=== PATIENT | female | born 1960 | race Caucasian/White ===

== ENCOUNTER 2020-09-07 12:29 | Emergency (ER) | payer MEDICARE, MEDICAID, SELFPAY ==
[2020-09-07 12:36] VITALS: PULSE 73; RESP 16; TEMP 36.6; O2SAT 97; BMI 39.5
--- NOTE | 2020-09-07 12:36 | PC.NURSE ---
PT REFUSED AUTOMATED BP TO BE TAKEN DURING TRIAGE TAKE THAT OFF, I'M NOT DOING THAT, IT HURTS TOO MUCH , INSISTING ON MANUAL BP CUFF TO BE USED WHICH WAS UNAVAILABLE IN THE TRIAGE ROOM AT THAT TIME.
--- NOTE | 2020-09-07 14:10 | PC.NURSE ---
patient a&ox3, pt upset and stated you know, I was the only person in the waiting room when I was brought in and now I am just sitting here waiting , this nurse assured the patient that despite the waiting room being empty that the emergency department was currently full and that there was a provider (dr. daily) who had signed up for her and had been called into an urgent situation and would be with her as soon as she could. Dr. Daily was notified of the patients comment.
--- NOTE | 2020-09-07 14:30 | PC.NURSE ---
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
--- NOTE | 2020-09-07 14:40 | PC.NURSE ---
female kory ruiz- went in to take the patients vitals, patient only allowed manual BP to be taken, requested it to be done on both arms and stated after her vitals were obtained that she needs the nurse to obtain her vitals and to not chart what was obtained. The patient also stated that her nose was bleeding again- Dr. Garcia was notified. This nurse will obtain vitals momentarily.
[2020-09-07] MEDS: Oxymetazoline HCl 0.05 % Nasal 15 ML SPRAY 2 SPRAY NOSTRIL-B (14:47)
--- NOTE | 2020-09-07 14:53 | ED_ITS ---
History of Present Illness General Chief Complaint: Epistaxis Stated Complaint: nose bleed Time Seen by Provider: 09/07/20 13:59 Source: patient Mode of arrival: ambulatory Limitations: no limitations History of Present Illness HPI Narrative: Patient comes emergency room complaining of epistaxis. Patient states she is on Eliquis. Starting this morning patient started having a nosebleed from the right side. Patient states she tried putting ice on her forehead and her back, holding pressure without any success. Patient denies shortness of breath, no chest pain, no dizziness. I was informed by the patient's nurse and tech and EMS that the patient is refusing to have her blood pressure taken. Related Data Allergies Allergy/AdvReac Type Severity Reaction Status Date / Time No Known Allergies Allergy Verified 09/07/20 12:41 Review of Systems Review of Systems: Constitutional : No Weight loss, No Fever, No Chills, No Night Sweats, No Fatigue, No Malaise ENT/Mouth : No Hearing loss, No Ear Pain, No Nasal Congestion, No Sinus Pain, No Hoarseness, No sore throat, No Rhinorrhea, No Swallowing Difficulty, complaining right nostril bleeding Eyes: No Eye Pain, No Swelling, No Redness, No Foreign Body, No Discharge, No Vision Changes Cardiovascular : No Chest Pain, No SOB, No Dyspnea on Exertion, No Orthopnea, No Edema, No Palpitations Respiratory : No Cough, No Sputum, No Wheezing, No Smoke Exposure, No Dyspnea Gastrointestinal : No Nausea, No Vomiting, No Diarrhea, No Constipation, No abdominal Pain, No Hematochezia, No Melena Genitourinary : no irregular bleeding, No Dysuria, No Urinary Frequency, No Hematuria, No Urinary Incontinence, No Urgency, No Flank Pain, No Urinary Flow Changes, No Hesitancy Musculoskeletal : No joint pain, No Myalgias, No Joint Swelling Skin : No Skin Lesions, No rash Neuro : No Weakness, No Numbness, No Paresthesias, No Loss of Consciousness, No Dizziness, No Headache Psych : No Anxiety/Panic, No Depression, No SI/HI/AH/VH, No Social Issues, Heme/Lymph: No Bruising, No Bleeding,No Lymphadenopathy Endocrine : No Polyuria, No Polydipsia, No Temperature Intolerance [facility] Past Medical History Medical History Atrial fibrillation Social History Social History Alcohol intake: never Smoked in Last 30 Days: No Use of substances other than those prescribed or required for medical reasons: No Advance Directives: Yes Advance Directives Information Provided: Yes Advance Directives on File: No Physical Exam Vital Signs: Vital Signs: Last Vital Signs Temp 97.9 F 09/07/20 12:36 Pulse 73 09/07/20 12:36 Resp 16 09/07/20 12:36 BP 150/98 H 09/07/20 15:09 Pulse Ox 97 09/07/20 12:36 Body Mass Index 39.5 Appearance: Alert. Oriented X3. No acute distress. Eyes: Pupils equal, round and reactive to light. ENT: Pharynx normal. Bleeding from the right [place] Neck: Normal inspection. Neck supple. No lymph nodes noted. No crepitus CVS: Normal heart rate and rhythm. Pulses normal. Normal S1 and S2 Respiratory: No respiratory distress. Breath sounds normal. No Wheezing. No rales Abdomen: Soft and nontender. No rigidity. No distention. good BS x4 Skin: Skin warm and dry. Normal skin color. Normal skin turgor. Extremities: No lower extremity edema. No lower extremity edema. No Lacerations. No Rash Neuro: Oriented X 3. No motor deficit. No sensory deficit. Moving all extermities. No slurred speech. Course Course Course Narrative: Patient's nose was sprayed with Afrin, then packed with Afrin. The bleeding decreased however there is still small anterior bleed. Patient's nose was sprayed and packed with TXA. TXA a did slow down the bleeding, however it is still bleeding minimally. Patient states that she will not accept a rhino rocket. I discussed with the patient the next option is to use silver nitrate, patient agrees. Silver nitrates were applied to the right nostril, patient still has 1 small spo t that continues bleeding. Patient refuses any further intervention, states that his 89-year-old neighbor is waiting for her outside and does not want him driving in the dark. Patient requesting to be discharged. Patient took with her the bottle of Afrin, explained to her how to use it if the bleeding recurs. If she has significant bleeding, patient is to return to emergency room. Discharge Plan Discharge Clinical Impression: Epistaxis Patient Disposition: Home, Self-Care Instructions: Nosebleed (ED) Additional Instructions: Please follow-up with your primary care physician tomorrow. If you have any worsening or new symptoms, please return to the emergency room or call 911
--- NOTE | 2020-09-07 14:55 | PC.NURSE ---
charge nurse- aranza- is aware of the patient being difficult to staff
--- NOTE | 2020-09-07 14:59 | PC.NURSE ---
dr daily at bedside per request of the patient, will obtain vitals after dr. daily has finished
[2020-09-07 15:09] VITALS: BP 150/98
--- NOTE | 2020-09-07 15:09 | PC.NURSE ---
this nurse obtained bp and patient stated that it was still high for her, patient requested for the charge nurse
[2020-09-07] MEDS: Tranexamic Acid 1,000 MG in 0.9 % Sodium Chloride 50 ML 360 MG IV (15:50)
[2020-09-07] MEDS: Lidocaine HCl 2 % MPF 5 ML VIAL INFILTRATI (17:19)
[2020-09-07] MEDS: Silver Nitrate Applicator STICK..EA. 5 APPL TOPICAL (17:20)
--- NOTE | 2020-09-07 17:20 | PC.NURSE ---
all medications were administered by provider and discarded prior to scanning.
--- NOTE | 2020-09-07 17:35 | PC.NURSE ---
patient refusing discharge, wanting to speak with provider again. notified provider and notified charge nurse, patient states there is a serious lack of communication in this place and I am appalled. patient is concerned over her nose that may bleed again after she discharges.
== END 2020-09-07 17:34 | disposition home or self-care (01) ==
PROVIDERS: Emergency Provider Emergency Medicine
DX: R04.0 Epistaxis (principal); I48.91 Unspecified atrial fibrillation; Z79.01 Long term (current) use of anticoagulants
CPT/HCPCS: 30901; 99284

== ENCOUNTER → 2020-10-19 08:24 | Outpatient (BNVA) | payer MEDICARE, MEDICAID, SELFPAY | PROVIDERS: PCP Internal Medicine; Visit Provider Internal Medicine Gastroenterology | DX: K76.0 Fatty (change of) liver, not elsewhere classified (principal) | CPT/HCPCS: 99212 ==

== ENCOUNTER 2020-12-24 08:13 | Day surgery (SDC) | payer MEDICARE, MEDICAID, SELFPAY ==
--- NOTE | 2020-12-20 12:59 | HO.ANESPROP2 ---
HPI - Anesthesia Eval Consult details Narrative: 60yo F for Upper Endoscopy with Disaccharidase Eliquis for afib/flutter PMFSH Active Problems Active Problems: All Active Problems (Updated 12/18/20 @ 12:44 by Maira Lucas) Fatty liver (Acute) Abdominal pain (Acute) Past Medical History Medical History Arthritis Atrial fibrillation and flutter Depression GERD (gastroesophageal reflux disease) H/O hiatal hernia History of Bautista's esophagus HTN (hypertension) Hyperlipidemia Iron deficiency anemia On anticoagulant therapy HORACE treated with BiPAP Restless leg syndrome Family History Family History Mother Breast cancer Sleep apnea A-fib Maternal Aunt Breast cancer A-fib Family/Other Breast cancer Sleep apnea Maternal Uncle A-fib Surgical History Surgical History H/O colonoscopy H/O dilation and curettage H/O melanoma excision H/O removal of cyst H/O right knee surgery History of esophagogastroduodenoscopy (EGD) Social History Social History Household Members: Other Household Members Other:: yady - edilia Alcohol intake: current Alcohol intake frequency: holidays/special occasions only Patient Tobacco Use Status: Never used Tobacco Meds Allergies Allergy/AdvReac Type Severity Reaction Status Date / Time erythromycin base Allergy Unknown Unknown Verified 12/24/20 08:43 Home Medications Medication Instructions Recorded Confirmed Last Taken Type apixaban 2.5 mg tablet 2.5 mg PO ONCE tab 10/19/20 12/20/20 History diltiazem HCl 120 mg 120 mg PO DAILY 10/19/20 Unknown History capsule,extended release 24 hr ketoconazole 2 % topical cream appl TOPICAL 10/19/20 Unknown History rosuvastatin 5 mg tablet mg PO 10/19/20 Unknown History valacyclovir 1 gram tablet 2,000 mg PO BID 10/19/20 Unknown History Exam Exam Date and Time: December 20, 2020 1259 Assessment and Plan Assessment Anesthesia Assessment: Chart Reviewed
[2020-12-24 07:00] VITALS: BMI 38.9
[2020-12-24 08:20] VITALS: BP 148/84; PULSE 69; RESP 18; TEMP 36.6; O2SAT 96
--- NOTE | 2020-12-24 08:39 | HO.ANESPROP2 ---
[facility] Active Problems Active Problems: All Active Problems (Updated 12/18/20 @ 12:44 by Maira Lucas) Fatty liver (Acute) Abdominal pain (Acute) Past Medical History Medical History Arthritis Atrial fibrillation and flutter Depression GERD (gastroesophageal reflux disease) H/O hiatal hernia History of Bautista's esophagus HTN (hypertension) Hyperlipidemia Iron deficiency anemia On anticoagulant therapy HORACE treated with BiPAP Restless leg syndrome Family History Family History Mother Breast cancer Sleep apnea A-fib Maternal Aunt Breast cancer A-fib Family/Other Breast cancer Sleep apnea Maternal Uncle A-fib Surgical History Surgical History H/O colonoscopy H/O dilation and curettage H/O melanoma excision H/O removal of cyst H/O right knee surgery History of esophagogastroduodenoscopy (EGD) Social History Social History Household Members: Other Household Members Other:: yady - edilia Alcohol intake: current Alcohol intake frequency: holidays/special occasions only Patient Tobacco Use Status: Never used Tobacco Use of substances other than those prescribed or required for medical reasons: No Have you been hit, kicked, punched, or otherwise hurt by someone within the past year? If so, by whom?: No Are you DNR?: No Advance Directives: No Advance Directives Information Provided: No Recently lost weight without trying: No Nutrition Risks: No Nutritional Risk Meds Allergies Allergy/AdvReac Type Severity Reaction Status Date / Time No Known Allergies Allergy Verified 10/19/20 08:34 Active Medications: Current Medications Generic Name Dose Route Start Last Admin Trade Name Freq PRN Reason Stop Dose Admin Lactated Ringer's 1,000 mls @ 100 mls/hr 12/24/20 08:15 Lr IVCONT .Q10H [facility] Home Medications Medication Instructions Recorded Confirmed Last Taken Type apixaban 2.5 mg tablet 2.5 mg PO ONCE tab 10/19/20 12/20/20 History diltiazem HCl 120 mg 120 mg PO DAILY 10/19/20 Unknown History capsule,extended release 24 hr ketoconazole 2 % topical cream appl TOPICAL 10/19/20 Unknown History rosuvastatin 5 mg tablet mg PO 10/19/20 Unknown History valacyclovir 1 gram tablet 2,000 mg PO BID 10/19/20 Unknown History Exam Exam Date and Time: December 24, 2020 0839 Height,Weight and Vital Signs: Height 5 ft 6 in Weight 109.316 kg Last Vital Signs Temp 98 F 12/24/20 08:20 Pulse 69 12/24/20 08:20 Resp 18 12/24/20 08:20 BP 148/84 H 12/24/20 08:20 Pulse Ox 96 12/24/20 08:20 Airway Mallampati Class: III TM Dist: >3cm Neck ROM: Full Heart: RRR Lungs: CTA
--- NOTE | 2020-12-24 08:45 | PC.NURSE ---
pt sts only can ambulate short distance because of chronic knee pain with movement.
[2020-12-24] MEDS: Lactated Ringers 1,000 ML 100 ML IVCONT (08:54)
--- NOTE | 2020-12-24 09:09 | MHC.SHP ---
Pre-Procedural Eval Section B Chief Complaint: Abdominal Pain and Fatty Liver Relevant Family History (Specify if Yes): No Relevant Social History: None Present Medications: see Short Stay Collaborative assessment Medical History: Significant History (Arthritis Atrial fibrillation and flutter Depression GERD (gastroesophageal reflux disease) H/O hiatal hernia History of Bautista's esophagus HTN (hypertension) Hyperlipidemia Iron deficiency anemia On anticoagulant therapy HORACE treated with BiPAP Restless leg syndrome) History of Previous Operations: Relevant previous surgery/procedure and date(s) (H/O colonoscopy H/O dilation and curettage H/O melanoma excision H/O removal of cyst H/O right knee surgery History of esophagogastroduodenoscopy (EGD)) Allergies: Allergies Allergy/AdvReac Type Severity Reaction Status Date / Time erythromycin base Allergy Unknown Unknown Verified 12/24/20 08:43 Review of Systems Sugical H&P ROS: Negative: Constitution, Cardiovascular, Respiratory, Neurological, Psychiatric, Hem-Onc, Allergic/Immunologic, Gastrointestinal, Genitourinary, Musculoskeletal, Integumentary, Endocrine and Eyes/Ears/Nose/Throat Exam Surgical H&P Exam: Normal: HEENT, Normal: Heart, Normal: Lungs, Normal: Extremities, Normal: Abdomen, Normal: Skin and Normal: Neurological Plan Diagnosis/Plan: Unchanged I have reviewed the history and physical and performed a pertinent physical examination on my patient. No changes have occurred unless specified.
--- NOTE | 2020-12-24 09:11 | P.BOP_ITS ---
Brief Operative Note Date of Service: 12/24/20 Pre-op diagnosis: abdo pain, bloating Post-op diagnosis: same Procedure: see op note Surgeon: Claribel Meek MD Anesthesia: MAC Was an Psychologist Private Practice used for this Procedure?: No Estimated blood loss (mL): 0 Condition: stable Disposition: PACU
--- NOTE | 2020-12-24 09:11 | W.PM.OPN ---
Operative Note Operative Note Date of Service: 12/24/20 Narrative: Procedure Description: EGD FLEXIBLE TRANSORAL UPPER GASTROINTESTINAL ENDOSCOPY UPPER ENDOSCOPY Consent: Indications for the procedure and potential complications of bleeding, perforation, reaction to medications and missed diagnosis were discussed with the patient and informed consent was obtained. Instrument: Olympus GIF H 190 J mid size upper endoscope Monitoring: Vital signs and clinical assessment, continuous EKG monitoring, Pulse oximetry, Carbon Dioxide monitoring and blood pressure monitoring were done throughout the procedure. Procedure: The patient was placed in the left lateral decubitis position and pre-procedure medications were administered and a bite block was placed. The endoscope was inserted into the mouth and advanced under direct vision to the third part of duodenum. A careful inspection was made as the upper endoscope was withdrawn including a retroflexed examination of the proximal stomach; Findings and interventions are described below. Findings: Larynx:normal Esophagus: GE junction at 40 cm, diaphragm hiatus at 40 cm, irregular Z line with islands opf salmon pink tissue noted, bx taken to r/o barretts, also mild erythema Stomach: Prominent fold or polyp lesion right at pylorus with erythema on the surface prolapsing into the bulb, this was removed with combination of cold snare and biopsy. 3 clips applied for hemostasis. Grade 2 flapvalve on retroflexed examination of the cardia. A few fundic gland polyps were noted and biopsied. Random stomach biopsies also taken Duodenum: mild erythema in bulb, bx taken Intervention: Biopsies as noted above Impression/Findings: bulbar duodenitis fundic gland polyps gastric polyp vs fold at pylorus suspected barretts esophagus PLAN: await bx results, if sx persist then GES
[2020-12-24 10:03] VITALS: BP 127/68; PULSE 62; RESP 16; TEMP 36.8; O2SAT 99
[2020-12-24 10:18] VITALS: PULSE 57; RESP 18; TEMP 36.9; O2SAT 98
--- NOTE | 2020-12-24 10:52 | HO.POSTANES ---
Post Anesthesia Evaluation Post Anesthesia Evaluation Vital Signs: Vital Signs Temp Pulse Resp BP Pulse Ox 12/24/20 10:18 98.4 F 57 18 98 12/24/20 10:03 98.3 F 62 16 127/68 99 12/24/20 08:20 98 F 69 18 148/84 H 96 Anesthesia: Monitored Mental Status: Awake Pain Control: Satisfactory Nausea/Vomiting: None Hydration: Adequate Anesthesia-Related Issues: No Anes. Related Issues
[2020-12-28 17:56] LABS: Lactase 3.1 (15.0-45.5); Palatinase 9.7 (5.0-26.3)
== END 2020-12-24 11:09 | disposition home or self-care (01) ==
PROVIDERS: PCP Internal Medicine; Visit Provider Internal Medicine Gastroenterology
PROC: 0DJ08ZZ Inspection of Upper Intestinal Tract, Via Natural or Artificial Opening Endoscopic (ICD-10-PCS; CPT 43235; principal; 2020-12-24 09:30)
DX: K29.80 Duodenitis without bleeding (principal); K31.7 Polyp of stomach and duodenum; R11.2 Nausea with vomiting, unspecified; K44.9 Diaphragmatic hernia without obstruction or gangrene; K76.0 Fatty (change of) liver, not elsewhere classified; R16.2 Hepatomegaly with splenomegaly, not elsewhere classified; N28.1 Cyst of kidney, acquired; D18.00 Hemangioma unspecified site; I48.91 Unspecified atrial fibrillation; I48.92 Unspecified atrial flutter; Z79.01 Long term (current) use of anticoagulants; I10 Essential (primary) hypertension; G47.33 Obstructive sleep apnea (adult) (pediatric); Z79.899 Other long term (current) drug therapy; Z85.820 Personal history of malignant melanoma of skin
CPT/HCPCS: 43251; 43239; 36415; 82657; 88305; 88342

== ENCOUNTER → 2021-01-18 08:38 | Outpatient (BNVA) | payer MEDICARE, MEDICAID, SELFPAY | PROVIDERS: PCP Internal Medicine; Visit Provider Internal Medicine Gastroenterology | CPT/HCPCS: Q3014 ==

== ENCOUNTER → 2021-03-18 14:58 | Outpatient (BNVA) | payer MEDICARE, MEDICAID, SELFPAY | PROVIDERS: PCP Internal Medicine; Visit Provider Internal Medicine Gastroenterology | CPT/HCPCS: Q3014 ==

== ENCOUNTER 2021-06-17 12:58 | Day surgery (SDC) | payer MEDICARE, MEDICAID, SELFPAY ==
--- NOTE | 2021-06-14 09:41 | P.CONAN_ITS ---
Documented by User: Alycia Flores NP 06/14/21 09:50 HPI - Anesthesia Eval Consult details Narrative: 61yo F for Upper Endoscopy and Colonoscopy Eliquis for afib/flutter s/p EGD 12/2020 with TIVA PMFSH Active Problems Active Problems: All Active Problems (Updated 12/18/20 @ 12:44 by Maira Lucas, RN) Fatty liver (Acute) Abdominal pain (Acute) Past Medical History Medical History Arthritis Atrial fibrillation and flutter Depression GERD (gastroesophageal reflux disease) H/O hiatal hernia History of Bautista's esophagus HTN (hypertension) Hyperlipidemia Iron deficiency anemia On anticoagulant therapy HORACE treated with BiPAP Restless leg syndrome Family History Family History Mother Breast cancer Sleep apnea A-fib Maternal Aunt Breast cancer A-fib Family/Other Breast cancer Sleep apnea Maternal Uncle A-fib Surgical History Surgical History H/O colonoscopy H/O dilation and curettage H/O melanoma excision H/O removal of cyst H/O right knee surgery History of esophagogastroduodenoscopy (EGD) Hx of endoscopy Social History Social History Household Members: Other Household Members Other:: yady - edilia Alcohol intake: current Alcohol intake frequency: holidays/special occasions only Patient Tobacco Use Status: Never used Tobacco Use of substances other than those prescribed or required for medical reasons: No Are you DNR?: No Advance Directives: No Advance Directives Information Provided: Yes Meds Allergies Allergy/AdvReac Type Severity Reaction Status Date / Time erythromycin base Allergy Unknown Unknown Verified 01/18/21 08:38 Home Medications Medication Instructions Recorded Confirmed Last Taken Type apixaban 2.5 mg tablet (Eliquis) 2.5 mg PO ONCE tab 10/19/20 01/18/21 12/20/20 History diltiazem HCl 120 mg 120 mg PO DAILY 10/19/20 01/18/21 Unknown History capsule,extended release 24 hr ketoconazole 2 % topical cream appl TOPICAL 10/19/20 Unknown History rosuvastatin 5 mg tablet 5 mg PO DAILY 10/19/20 01/18/21 Unknown History valacyclovir 1 gram tablet 2,000 mg PO BID 10/19/20 01/18/21 Unknown History biotin 1,000 mcg chewable tablet 1,000 mcg PO DAILY 01/18/21 01/18/21 Unknown History flecainide 150 mg tablet 1 tab PO Q12H PRN 01/18/21 01/18/21 Unknown History sodium,potassium,mag sulfates 17.5 See Rx Instructions PO .COMPLEX ml 01/18/21 Unknown History gram-3.13 gram-1.6 gram oral soln (Suprep Bowel Prep Kit) apixaban 5 mg tablet (Eliquis) 5 mg PO BID 03/18/21 Unknown History Exam Exam Date and Time: June 14, 2021 0941 Assessment and Plan Assessment Anesthesia Assessment: Chart Reviewed Documented by User: Katelyn Beckwith MD 06/17/21 13:47 REPLACED BY [facility] Past Medical History Medical History Arthritis Atrial fibrillation and flutter Depression GERD (gastroesophageal reflux disease) H/O hiatal hernia History of Bautista's esophagus HTN (hypertension) Hyperlipidemia Iron deficiency anemia On anticoagulant therapy HORACE treated with BiPAP Restless leg syndrome Family History Family History Mother Breast cancer Sleep apnea A-fib Maternal Aunt Breast cancer A-fib Family/Other Breast cancer Sleep apnea Maternal Uncle A-fib Family history of problems with anesthesia: No Surgical History Surgical History H/O colonoscopy H/O dilation and curettage H/O melanoma excision H/O removal of cyst H/O right knee surgery History of esophagogastroduodenoscopy (EGD) Hx of endoscopy History of Problems with Anesthesia: No Social History Social History Household Members: Other Household Members Other:: yady - edilai Alcohol intake: current Alcohol intake frequency: holidays/special occasions only Patient Tobacco Use Status: Never used Tobacco Use of substances other than those prescribed or required for medical reasons: No Are you DNR?: No Advance Directives: No Advance Directives Information Provided: Yes Meds Allergies Allergy/AdvReac Type Severity Reaction Status Date / Time erythromycin base Allergy Unknown Unknown Verified 01/18/21 08:38 Home Medications Medication Instructions Recorded Confirmed Last Taken Type apixaban 2.5 mg tablet (Eliquis) 2.5 mg PO ONCE tab 10/19/20 01/18/21 12/20/20 History diltiazem HCl 120 mg 120 mg PO DAILY 10/19/20 01/18/21 Unknown History capsule,extended release 24 hr ketoconazole 2 % topical cream appl TOPICAL 10/19/20 Unknown History rosuvastatin 5 mg tablet 5 mg PO DAILY 10/19/20 01/18/21 Unknown History valacyclovir 1 gram tablet 2,000 mg PO BID 10/19/20 01/18/21 Unknown History biotin 1,000 mcg chewable tablet 1,000 mcg PO DAILY 01/18/21 01/18/21 Unknown History flecainide 150 mg tablet 1 tab PO Q12H PRN 01/18/21 01/18/21 Unknown History sodium,potassium,mag sulfates 17.5 See Rx Instructions PO .COMPLEX ml 01/18/21 Unknown History gram-3.13 gram-1.6 gram oral soln (Suprep Bowel Prep Kit) apixaban 5 mg tablet (Eliquis) 5 mg PO BID 03/18/21 Unknown History Exam Airway Mallampati Class: II TM Dist: >3cm Neck ROM: Full Heart: rrr Lungs: cta Assessment and Plan Assessment Anesthesia Assessment: Anesthesia Plan Discussed and Chart Reviewed Final Anesthetic Review Family History of Problems with Anesthesia: No History of Problems with Anesthesia: No NPO: Yes ASA Class: III Final Preanesthetic Review: No Changes in Pt Med Stat, Meds/Allgs Chart Reviewed and Consent Obtained/Reviewed Patient Risk: Intermediate Procedure Risk: Intermediate Anesthetic Plan Anesthetic Plan: MAC: Disposition: Standard PACU
[2021-06-17 13:29] VITALS: BP 151/86; PULSE 73; RESP 18; TEMP 37.1; O2SAT 98; BMI 32.8
[2021-06-17] MEDS: Lactated Ringers 1,000 ML 100 ML IVCONT (13:48)
--- NOTE | 2021-06-17 14:43 | MHC.SHP ---
Pre-Procedural Eval Section A Date of Service: 06/17/21 Section B Chief Complaint: epigastric pain Relevant Family History (Specify if Yes): No Relevant Social History: None Present Medications: see Short Stay Collaborative assessment Medical History: Significant History (Arthritis Atrial fibrillation and flutter Depression GERD (gastroesophageal reflux disease) H/O hiatal hernia History of Bautista's esophagus HTN (hypertension) Hyperlipidemia Iron deficiency anemia On anticoagulant therapy HORACE treated with BiPAP Restless leg syndrome) History of Previous Operations: Relevant previous surgery/procedure and date(s) (H/O colonoscopy H/O dilation and curettage H/O melanoma excision H/O removal of cyst H/O right knee surgery History of esophagogastroduodenoscopy (EGD) Hx of endoscopy) Allergies: Allergies Allergy/AdvReac Type Severity Reaction Status Date / Time erythromycin base Allergy Unknown Unknown Verified 01/18/21 08:38 Review of Systems Sugical H&P ROS: Negative: Constitution, Cardiovascular, Respiratory, Neurological, Psychiatric, Hem-Onc, Allergic/Immunologic, Gastrointestinal, Genitourinary, Musculoskeletal, Integumentary, Endocrine and Eyes/Ears/Nose/Throat Exam Surgical H&P Exam: Normal: HEENT, Normal: Heart, Normal: Lungs, Normal: Extremities, Normal: Abdomen, Normal: Skin and Normal: Neurological Plan Diagnosis/Plan: Unchanged I have reviewed the history and physical and performed a pertinent physical examination on my patient. No changes have occurred unless specified. EGd, colonoscopy for assessment of abdominal pain.
--- NOTE | 2021-06-17 14:52 | PM.OP ---
Brief Operative Note Date of Service: 06/17/21 Pre-op diagnosis: abdominal pain Post-op diagnosis: same Procedure: see op note Surgeon: Claribel Meek MD Anesthesia: MAC Was an Gas Operations Superintendent used for this Procedure?: No Estimated blood loss (mL): 0 Condition: stable Disposition: PACU
--- NOTE | 2021-06-17 14:53 | W.PM.OPN ---
Operative Note Operative Note Date of Service: 06/17/21 Narrative: Operative Information Procedure Description: EGD, Colonoscopy FLEXIBLE TRANSORAL UPPER GASTROINTESTINAL ENDOSCOPY AND COLONOSCOPY PROCEDURE NOTE UPPER ENDOSCOPY Consent: Indications for the procedure and potential complications of bleeding, perforation, reaction to medications and missed diagnosis were discussed with the patient and informed consent was obtained. Instrument: Olympus GIF H 190 J mid size upper endoscope Monitoring: Vital signs and clinical assessment, continuous EKG monitoring, Pulse oximetry, Carbon Dioxide monitoring and blood pressure monitoring were done throughout the procedure. Procedure: The patient was placed in the left lateral decubitis position and pre-procedure medications were administered and a bite block was placed. The endoscope was inserted into the mouth and advanced under direct vision to the third part of duodenum. A careful inspection was made as the upper endoscope was withdrawn including a retroflexed examination of the proximal stomach; Findings and interventions are described below. Findings: Larynx:normal Esophagus: GE junction at 40? cm, diaphragm hiatus at 40 cm, irregular Z line with islands of salmon pink tissue noted, bx taken for barretts, Stomach: Raised polypoid leison in the pyloric area at the 11 o' clock position with gyrus like pattern (Kudo pit pattern type IV) measured about 14-15 mm. This was removed with hot snare and 3 clips applied to defect. The polyp was retrieved with net. Gastric mapping done with bx taken from pylorus, angularis, lesser and greater curves as well as fundus. Grade 2 flap valve on retroflexed examination of the cardia. Many fundic gland polyps were noted. Duodenum: mild erythema in bulb, bx taken Intervention: Biopsies as noted above, polypectomy COLONOSCOPY Instrument: Olympus variable stiffness adult scope 190L Colonoscopy Monitoring: Vital signs and clinical assessment, continuous EKG monitoring, Pulse oximetry, Carbon Dioxide monitoring and blood pressure monitoring were done throughout the procedure. Colon withdrawal time was 22 minutes. Procedure: The patient was placed in the left lateral decubitis position and pre-procedure medications were administered. After a digital rectal examination of the ano-rectum, the video colonoscope was inserted into the rectum and advanced through the colon to the cecum/TI. The colonoscope was slowly withdrawn in a retrograde panoramic fashion and the colon mucosa was carefully examined including a retroflexed view of the rectum. Findings and interventions are described below. Procedure Difficulty:moderate due to looping Findings: Beyer diverticulosis moderately severe bill sigmoid Random colon bx taken Terminal Ileum-normal, bx taken Cecum:normal Ascending Colon: proximal area there was a 14-15 mm lateral spreading granular polyp lesion. This was raised with ORISe, then the edges ablated with APC, then 3 clips used to close defect Transverse Colon - few tics noted Descending Colon: few tics noted Sigmoid Colon: diverticulosis Rectum: Retroflexion with moderate sized internal hemorrhoids, grade I Anorectum - normal Colon preparation: [place] Bowel Preparation Scale Right colon; 2 Transverse colon: 3 Left colon; 3 (0 = Unprepared colon segment with mucosa not seen due to solid stool that cannot be cleared. 1 = Portion of mucosa of the colon segment seen, but other areas of the colon segment not well seen due to staining, residual stool and/or opaque liquid. 2 = Minor amount of residual staining, small fragments of stool and/or opaque liquid, but mucosa of colon segment seen well. 3 = Entire mucosa of colon segment seen well with no residual staining, small fragments of stool or opaque liquid) Impression and Post Procedure Diagnosis: Endoscopy Findings: gastric polyp\ fundic gland polyps gastritis barretts Colonoscopy Findings: polyp internal hemorrhoids diverticular disease Plan: Await Pathology results Repeat Colonoscopy in 2-3 years or earlier if clinically indicated High fiber diet leaflet avoid straining at stool, epsom salts and sitz bath, anusol supps or cream repeat EGd pending path, maybe 1 yr, check h pylori if path neg restart eliquis 48 hrs, if any pain, bleeding, melena profuse then needs to come to ED Above findings were reviewed with the patient and relevant handouts were provided if indicated.
[2021-06-17 16:05] VITALS: BP 102/59; PULSE 70; RESP 24; TEMP 36.3; O2SAT 99
[2021-06-17 16:20] VITALS: BP 136/70; PULSE 67; RESP 20; O2SAT 100
[2021-06-17 16:35] VITALS: BP 149/81; PULSE 64; RESP 20; O2SAT 99
--- NOTE | 2021-06-17 17:04 | PC.NURSE ---
oob to dress ambulated to bathroom to void steady gait. no abdominal pain. tolerated po fluids.
== END 2021-06-17 17:06 | disposition home or self-care (01) ==
PROVIDERS: PCP Internal Medicine; Visit Provider Internal Medicine Gastroenterology
PROC: (CPT 45388; principal; 2021-06-17 14:30)
DX: R10.13 Epigastric pain (principal); D12.2 Benign neoplasm of ascending colon; K57.30 Diverticulosis of large intestine without perforation or abscess without bleeding; K64.0 First degree hemorrhoids; K29.50 Unspecified chronic gastritis without bleeding; K22.70 Barrett's esophagus without dysplasia; K31.7 Polyp of stomach and duodenum; K44.9 Diaphragmatic hernia without obstruction or gangrene; K21.9 Gastro-esophageal reflux disease without esophagitis; I10 Essential (primary) hypertension; D50.9 Iron deficiency anemia, unspecified; G47.33 Obstructive sleep apnea (adult) (pediatric); I48.91 Unspecified atrial fibrillation; Z79.01 Long term (current) use of anticoagulants; Z99.89 Dependence on other enabling machines and devices; Z88.1 Allergy status to other antibiotic agents; Z85.820 Personal history of malignant melanoma of skin
CPT/HCPCS: 45388; 45380; 45381; 43251; 43239; 88305; 88342

== ENCOUNTER → 2021-07-22 08:55 | Outpatient (BNVA) | payer MEDICARE, MEDICAID, SELFPAY | PROVIDERS: PCP Internal Medicine; Visit Provider Internal Medicine Gastroenterology | DX: K76.0 Fatty (change of) liver, not elsewhere classified (principal); K22.70 Barrett's esophagus without dysplasia; K31.7 Polyp of stomach and duodenum | CPT/HCPCS: Q3014 ==

== ENCOUNTER → 2022-08-11 10:11 | Outpatient (BNVA) | payer MEDICARE, MEDICAID, SELFPAY | PROVIDERS: PCP Internal Medicine; Visit Provider Internal Medicine Gastroenterology | DX: K22.70 Barrett's esophagus without dysplasia (principal); R10.9 Unspecified abdominal pain; K59.00 Constipation, unspecified | CPT/HCPCS: 99212 ==

== ENCOUNTER 2023-06-01 10:26 | Outpatient (AMB) | payer MEDICARE, MEDICAID, SELFPAY ==
--- NOTE | 2023-06-01 10:30 | A.OFFVIS_ITS ---
Intake Vital Signs 06/01/23 10:35 Height 5 ft 4 in Intake Visit Reasons: 8 month follow up Intake Note: Zenaida presents in the office as a 8 month follow up. CC: Right hip replacement scheduled in the next few weeks. She states that she has been having iritation in her stomach when she eats. She has not been eating the best foods. It can be something so little. After her hip surgery she would like to schedule an EGD and COLO. At times she takes more than one pantoprazole. She states that she doesnt get reflux as much as her stomach bothering her she feels like it calms her stomach down. Director Of Student Financial Services Required: No Allergies adhesive tape Allergy (Mild, Verified 06/01/23 10:35) Unknown erythromycin base Allergy (Unknown, Verified 06/01/23 10:34) Unknown HPI 8 month follow up HPI Details 63 yr old f w/ hx of OA, HTN, HORACE, a-fib being seen for f/u RECAP: Her main complaint was nausea and vomiting with lane colored material, no coffee ground and no blood noted she has attacks maybe every few months and only had a handful of episodes she feels some foods may trigger, can't properly digest attacks last the whole day most recent attack was 2 weeks ago, started emesis at 6 am and lasted most of the day no warning signs e.g double vision she does get mid abdominal pain in epigastric just before the attacks minimal alcohol no THC use she had been waiting for knee surgeries losing weight deliberately TESTS: US renal: 10/2018--cystic kidney lesions US abdo 04/2019- hepatosplenomegaly, fatty liver, reanl cysts, US abdo-06/2020--renal cysts, bosniak 1 hemangioma, fatty liver, EGD/colonoscopy 2016-- normal EGD, diverticulsois, hemorrhoids EGD 12/2020 inflammatory polyp removed from pyloric area chronci active esophagitis barretts esophagus LFT--nml EGD/colonoscopy 06/2021 inflammatory fibroid polyp removed from pylorus, gastric mapping neg for malignancy lateral spreading granular polyp lesion removed-rept colon 2-3 yrs or so INTERIM: she has upper abdominal discomfort for few months occ light nausea, no vomiting--uses zofran prn and works great appetite is good she has been avoiding lactose foods, takes lactaid if needed she s expecting hip surgery soon she takes extra pantoprazole and it helps EXAM: GENERAL: The patient is well developed and nontoxic. VITAL SIGNS:see workflow HEENT: Nonicteric sclerae, PERRLA, EOMI. Oropharynx clear. Moist mucous membrane s. Conjunctivae appear well perfused. No thyroid mass. CHEST: Chest wall is nontender. HEART: Regular rate and rhythm without murmurs. LUNGS: Clear to auscultation bilaterally. ABDOMEN: Soft, positive bowel sounds, nontender, no organomegaly.no flank tenderness SKIN: No rash, no excessive bruising, petechiae, or purpura. NEUROLOGIC: Cranial nerves II-XII intact without motor/sensory deficit. 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 4/ colon polyps PLAN: 1/ repeat egd, and colonoscopy later nex t year, check for any recurrence of inflammatory fiborid polyp and colon polyps 2/ change PPI to nexium for spencer reffec t 3/ prep--suprep as needed 4/ rechekc LFT next time with US--focuss ed more on her hip right now PFSH Medical History Arthritis Atrial fibrillation and flutter On anticoagulant therapy Depression GERD (gastroesophageal reflux disease) Hyperlipidemia HTN (hypertension) HORACE treated with BiPAP Restless leg syndrome Iron deficiency anemia H/O hiatal hernia History of Mcgowan's esophagus Surgical History Hx of endoscopy H/O colonoscopy History of esophagogastroduodenoscopy (EGD) H/O melanoma excision H/O right knee surgery H/O dilation and curettage H/O removal of cyst Family History Mother Breast cancer Sleep apnea A-fib Maternal Aunt Breast cancer A-fib Family/Other Breast cancer Sleep apnea Maternal Uncle A-fib Household Members: Other Household Members Other:: yady - edilia Alcohol intake: current Alcohol intake frequency: holidays/special occasions only Patient Tobacco Use Status: Never used Tobacco Assessment & Plan Assessment & Plan (1) Gastric polyps: Code(s): K31.7 - Polyp of stomach and duodenum (2) Abdominal pain: Code(s): R10.9 - Unspecified abdominal pain (3) Mcgowan esophagus: Code(s): K22.70 - Mcgowan's esophagus without dysplasia Medications: New esomeprazole magnesium 20 mg PO DAILY 60 caps 2RF Discontinued pantoprazole Discontinued Reason: Doctor's Order 40 mg PO DAILY 90 tabs 2RF Coding Level of Care Code Est Pt Level 3 (94242) Diagnoses Gastric polyps K31.7 Abdominal pain R10.9 Mcgowan esophagus K22.70
== END 2023-06-01 11:47 | disposition home or self-care (01) ==
PROVIDERS: Visit Provider Internal Medicine Gastroenterology
DX: K31.7 Polyp of stomach and duodenum (principal); R10.9 Unspecified abdominal pain; K22.70 Barrett's esophagus without dysplasia
CPT/HCPCS: 99213

== ENCOUNTER → 2023-06-01 10:26 | Outpatient (BNVA) | payer MEDICARE, MEDICAID, SELFPAY | PROVIDERS: Visit Provider Internal Medicine Gastroenterology | DX: K22.70 Barrett's esophagus without dysplasia (principal); R10.9 Unspecified abdominal pain; K31.7 Polyp of stomach and duodenum | CPT/HCPCS: 99212 ==

== ENCOUNTER 2023-08-20 09:18 | Day surgery (SDC) | payer MEDICARE, MEDICAID, SELFPAY ==
--- NOTE | 2023-08-19 10:54 | HO.ANESPROP2 ---
Documented by User: Alycia Flores NP 08/19/23 10:56 HPI - Anesthesia Eval Consult details Narrative: 63yo F for Upper Endoscopy and Colonoscopy Eliquis for afib Follows [facility] cardiology Stable at 03/2023 and cleared for hip surgery Hip and shoulder precautions PMF Active Problems Active Problems: All Active Problems (Updated 09/30/21 @ 17:44 by Claribel Meek MD) Hemorrhoids (Acute) Bautista esophagus (Acute) Gastric polyps (Acute) Abdominal pain (Acute) Fatty liver (Acute) Past Medical History Medical History (Updated 08/20/23 @ 10:43 by Sarah Sandhu RN) Arthritis Atrial fibrillation and flutter On anticoagulant therapy Depression GERD (gastroesophageal reflux disease) Hyperlipidemia HTN (hypertension) HORACE treated with BiPAP Restless leg syndrome H/O hiatal hernia History of Bautista's esophagus Family History Family History Mother Breast cancer Sleep apnea A-fib Maternal Aunt Breast cancer A-fib Family/Other Breast cancer Sleep apnea Maternal Uncle A-fib Family history of problems with anesthesia: No Surgical History Surgical History (Updated 08/20/23 @ 10:45 by Sarah Sandhu RN) History of right hip replacement History of bilateral knee replacement Hx of endoscopy H/O colonoscopy History of esophagogastroduodenoscopy (EGD) H/O melanoma excision H/O right knee surgery H/O dilation and curettage H/O removal of cyst History of Problems with Anesthesia: No Social History Social History Household Members: Other Household Members Other:: yady - edilia Alcohol intake: current Alcohol intake frequency: holidays/special occasions only Patient Tobacco Use Status: Former Tobacco user Quit Date: age 31 Meds Allergies Allergy/AdvReac Type Severity Reaction Status Date / Time adhesive tape Allergy Mild Unknown Verified 08/20/23 10:46 erythromycin base Allergy Unknown Unknown Verified 08/20/23 10:46 Home Medications Medication Instructions Recorded Confirmed Last Taken Type ketoconazole 2 % topical cream 1 appl topical DAILY 10/19/20 08/20/23 Unknown History valacyclovir 1 gram tablet 2,000 mg PO BID PRN Cold Sores 10/19/20 08/20/23 Unknown History flecainide 150 mg tablet 1 tab PO Q12H PRN Cardiac 01/18/21 08/20/23 Unknown History Arrhythmia apixaban 5 mg tablet (Eliquis) 5 mg PO BID 03/18/21 08/20/23 08/18/23 History biotin 1,000 mcg chewable tablet 2,500 mcg PO DAILY 08/11/22 08/20/23 Unknown History cholecalciferol (vitamin D3) 62.5 62.5 mcg PO DAILY 08/11/22 08/20/23 Unknown History mcg (2,500 unit) capsule lifitegrast 5 % eye drops in a 1 drp ophthalmic (eye) BID 08/11/22 08/20/23 Unknown History dropperette (Xiidra) multivitamin 1 tab PO DAILY 08/11/22 08/20/23 Unknown History diltiazem HCl 120 mg 120 mg PO DAILY 06/01/23 08/20/23 08/20/23 07:30 History capsule,extended release 24 hr ondansetron 4 mg disintegrating 4 mg PO Q8H PRN Nausea And Vomiting 06/01/23 08/20/23 Unknown History tablet rosuvastatin 5 mg tablet 2.5 mg PO DAILY 06/01/23 08/20/23 Unknown History losartan 25 mg tablet 25 mg PO BEDTIME 08/18/23 08/20/23 Unknown History epinephrine 0.3 mg/0.3 mL IM NEEDED 08/20/23 08/20/23 Unknown History injection, auto-injector Assessment and Plan Assessment Anesthesia Assessment: Chart Reviewed Final Anesthetic Review Family History of Problems with Anesthesia: No History of Problems with Anesthesia: No Documented by User: Sanchez Durbin MD 08/20/23 11:11 [facility] Past Medical History Medical History (Updated 08/20/23 @ 10:43 by Sarah Sandhu RN) Arthritis Atrial fibrillation and flutter On anticoagulant therapy Depression GERD (gastroesophageal reflux disease) Hyperlipidemia HTN (hypertension) HORACE treated with BiPAP Restless leg syndrome H/O hiatal hernia History of Bautista's esophagus Family History Family History Mother Breast cancer Sleep apnea A-fib Maternal Aunt Breast cancer A-fib Family/Other Breast cancer Sleep apnea Maternal Uncle A-fib Surgical History Surgical History (Updated 08/20/23 @ 10:45 by Sarah Sandhu RN) History of right hip replacement History of bilateral knee replacement Hx of endoscopy H/O colonoscopy History of esophagogastroduodenoscopy (EGD) H/O melanoma excision H/O right knee surgery H/O dilation and curettage H/O removal of cyst Social History Social History Household Members: Other Household Members Other:: yday - edilia Alcohol intake: current Alcohol intake frequency: holidays/special occasions only Patient Tobacco Use Status: Former Tobacco user Quit Date: age 31 Meds Allergies Allergy/AdvReac Type Severity Reaction Status Date / Time adhesive tape Allergy Mild Unknown Verified 08/20/23 10:46 erythromycin base Allergy Unknown Unknown Verified 08/20/23 10:46 Home Medications Medication Instructions Recorded Confirmed Last Taken Type ketoconazole 2 % topical cream 1 appl topical DAILY 10/19/20 08/20/23 Unknown History valacyclovir 1 gram tablet 2,000 mg PO BID PRN Cold Sores 10/19/20 08/20/23 Unknown History flecainide 150 mg tablet 1 tab PO Q12H PRN Cardiac 01/18/21 08/20/23 Unknown History Arrhythmia apixaban 5 mg tablet (Eliquis) 5 mg PO BID 03/18/21 08/20/23 08/18/23 History biotin 1,000 mcg chewable tablet 2,500 mcg PO DAILY 08/11/22 08/20/23 Unknown History cholecalciferol (vitamin D3) 62.5 62.5 mcg PO DAILY 08/11/22 08/20/23 Unknown History mcg (2,500 unit) capsule lifitegrast 5 % eye drops in a 1 drp ophthalmic (eye) BID 08/11/22 08/20/23 Unknown History dropperette (Xiidra) multivitamin 1 tab PO DAILY 08/11/22 08/20/23 Unknown History diltiazem HCl 120 mg 120 mg PO DAILY 06/01/23 08/20/23 08/20/23 07:30 History capsule,extended release 24 hr ondansetron 4 mg disintegrating 4 mg PO Q8H PRN Nausea And Vomiting 06/01/23 08/20/23 Unknown History tablet rosuvastatin 5 mg tablet 2.5 mg PO DAILY 06/01/23 08/20/23 Unknown History losartan 25 mg tablet 25 mg PO BEDTIME 08/18/23 08/20/23 Unknown History epinephrine 0.3 mg/0.3 mL IM NEEDED 08/20/23 08/20/23 Unknown History injection, auto-injector Exam Airway Mallampati Class: II TM Dist: <=3cm Neck ROM: Full Loose/Missing/Broken Teeth: Yes (chipped upper right front tooth) and Upper Heart: ok Lungs: ok Assessment and Plan Assessment Anesthesia Assessment: Anesthesia Plan Discussed Final Anesthetic Review NPO: Yes ASA Class: III Final Preanesthetic Review: No Changes in Pt Med Stat, Meds/Allgs Chart Reviewed, Consent Obtained/Reviewed and Anes Risks/Benef Reviewed Patient Risk: Intermediate Procedure Risk: Intermediate Anesthetic Plan Anesthetic Plan: Agree w/ Assess. and Plan and TIVA Disposition: Standard PACU
--- OUTSIDE RECORDS SUMMARY | 2023-08-20 09:22 | XMS_ITS | Patient Health Record ---
Author Name Unknown [facility] Pod[facility] [place] Address [address] [place] [address] Care Team Providers Care Video Game Tester Name Role Phone Checo Moy MD Primary Care Provider Sukh Taylor Unavailable [phone] ALLERGIES Allergen (clinical drug ingredient) Drug/Non Drug Allergy documented on EMR Reaction Allergy Type Onset Date Status erythromycin Erythromycin Unknown Drug Allergy A ctive REASON FOR REFERRAL No Information MEDICATIONS Medication SIG (Take, Route, Frequency, Duration) Notes Start Date End Date Status Econazole Nitrate No t-Taking All Day Allergy-D Twice a day PRN Active PriLOSEC Not-Taking Calcium + D3 Not-Franco ing CoQ-10 Not-Taking Pantoprazole Sodium Active Doxycycline Monohydrate 100 MG 1 capsule Orally Once a day for 10 days 09/15/2022 Active Eliquis 5 MG Orally Twice a day Active Multivitamin Active Cardizem 120 MG Orally once a day Active Crestor Active Biotin Active SOCIAL HISTORY Tobacco Use: Social History Observation Description Date Details (start date - stop date) Former Smoker NA - NA Sex Assigned At : Social History Observation Description Sex Assigned At Unknown Tobacco Use/Smoking Question Answer Notes Are you a: former smoker Additional Findings: Tobacco Non-User Current no n-smoker Alcohol Screen Question Answer Notes Did you have a drink containing alcohol in the p ast year? Yes Points 0 Interpretation Negative Tobacco use other than smoking: Question Answer Notes Are you an other tobacco user? No PROBLEMS Problem Type ICD Code Onset Dates Problem Status W/U Status Risk SNOMED Code Notes Problem Primary osteoarthrit is, right ankle and foot (M19.071) Active confirmed Localized, prim joyce osteoarthritis of the ankle and/or foot (488396177) Problem Primary osteoarthrit is, left ankle and foot (M19.072) Active confirmed Localized, prim joyce osteoarthritis of the ankle and/or foot (205033194) Problem Other hammer toe(s) (acquired), right foot (M20.41) Active confirmed Acquired hammer toe of right foot (8347177133534594) Problem Other hammer toe(s) (acquired), left foot (M20.42) Active confirmed Acquired hammer toe of left foot (0943918588606150) VITAL SIGNS Blood pressure diastolic 72 mm Hg 07/22/2023 Height 5 ft 6 in in 07/22/2023 Blood pressure systolic 131 mm Hg 07/22/2023 Weight 188 lbs 07/22/2023 BMI 30.34 kg/m2 07/22/2023 Encounters Encounter Location Date Provider Diagnosis [facility] [address] [facility] [address] [place] [address] 09/15/2022 Sukh Montelongo [address] [address] 09/15/2022 Sukh Montelongo Ingrowing nail L60.0 ; Skin disease L98.9 ; Pain in right toe(s) M79.674 and Cellulitis of right toe L03.[address] [address] 09/25/2022 Sukh Montelongo Other viral warts B07.8 ; Pain in left foot M79.672 ; Ingrowing nail L60.0 and Plantar fascial fibromatosis M72.[address] [address] 10/01/2022 Sukh Montelongo [address] [address] 04/29/2023 Sukh Montelongo Tinea unguium B35.1 ; Pain in right toe(s) M79.674 ; Pain in left toe(s) M79.675 ; Ingrowing nail L60.0 and Skin disease L98.[address] [address] 07/22/2023 Sukh Montelongo Tinea unguium B35.1 ; Pain in right toe(s) M79.674 ; Pain in left toe(s) M79.675 ; Ingrowing nail L60.0 ; Skin disease L98.9 and Xerosis cutis L85.3 ASSESSMENTS Encounter Date Diagnosis Assessment Notes Treatment Notes Treatment Clinical Notes 09/15/2022 Ingrowing nail (ICD-10 - L60.0) 09/15/2022 Skin disease (ICD-10 - L98.9) 09/25/2022 Other viral warts (ICD-10 - B07.8) 09/25/2022 Pain in left foot (ICD-10 - M79.672) 04/29/2023 Tinea unguium (ICD-10 - B35.1) 04/29/2023 Pain in right toe(s) (ICD-10 - M79.674) 07/22/2023 Tinea unguium (ICD-10 - B35.1) 07/22/2023 Pain in right toe(s) (ICD-10 - M79.674) 07/22/2023 Pain in left toe(s) (ICD-10 - M79.675) 04/29/2023 Pain in left toe(s) (ICD-10 - M79.675) 09/25/2022 Ingrowing nail (ICD-10 - L60.0) 09/15/2022 Pain in right toe(s) (ICD-10 - M79.674) 09/25/2022 Plantar fascial fibromatosis (ICD-10 - M72.2) 09/15/2022 Cellulitis of right toe (ICD-10 - L03.031) 04/29/2023 Ingrowing nail (ICD-10 - L60.0) 07/22/2023 Ingrowing nail (ICD-10 - L60.0) 07/22/2023 Skin disease (ICD-10 - L98.9) 04/29/2023 Skin disease (ICD-10 - L98.9) 07/22/2023 Xerosis cutis (ICD-10 - L85.3) PLAN OF TREATMENT Next Appt Details Provider Name:Sukh Ang Montelongo, 09/28/2023 01:00:00 PM, [address] [facility], [place], [address], Insurance Providers Payer Name Payer Address Payer Phone Subscriber Number Group Number Insured Name Patient Relationship to Insured Coverage Start Date Coverage End Date Medicare [employer] [address] [place] [address] [id number] Zenaida Lynn Self - patient is the insured MEDICAL (GENERAL) HISTORY Medical History History ICD Code Anxiety Arthritis Back,Hip,and Knee pain Cholesterol Cancer Depression High blood pressure Psoriasis Reflux ( GERD) Sciatica chronic sinusitis Warts Chicken pox Surgical History Surgery Date(Month/Year) arthroscopic knee surgery cyst removal 1993 Tae knee replacement 02/2021,04/2021 Hip surgery 06/19/23
--- NOTE | 2023-08-20 10:22 | MHC.SHP ---
Pre-Procedural Eval Section A - 24 Hr Update-Section A only Date of Service: 08/20/23 Section B - Complete if H&P > 30 days Chief Complaint: Bautista's esophagus without dysplasia Details of Present Illness: hx of colon polyp Relevant Family History (Specify if Yes): No Relevant Social History: None Present Medications: see Short Stay Collaborative assessment Medical History: Significant History ( Arthritis Atrial fibrillation and flutter On anticoagulant therapy Depression GERD (gastroesophageal reflux disease) Hyperlipidemia HTN (hypertension) HORACE treated with BiPAP Restless leg syndrome Iron deficiency anemia H/O hiatal hernia History of Bautista's esophagus) History of Previous Operations: Relevant previous surgery/procedure and date(s) (Hx of endoscopy H/O colonoscopy History of esophagogastroduodenoscopy (EGD) H/O melanoma excision H/O right knee surgery H/O dilation and curettage H/O removal of cyst) Allergies: Allergies Allergy/AdvReac Type Severity Reaction Status Date / Time adhesive tape Allergy Mild Unknown Verified 06/01/23 10:35 erythromycin base Allergy Unknown Unknown Verified 06/01/23 10:34 Review of Systems Sugical H&P ROS: Negative: Constitution, Cardiovascular, Respiratory, Neurological, Psychiatric, Hem-Onc, Allergic/Immunologic, Gastrointestinal, Genitourinary, Musculoskeletal, Integumentary, Endocrine and Eyes/Ears/Nose/Throat Exam Surgical H&P Exam: Normal: HEENT, Normal: Heart, Normal: Lungs, Normal: Extremities, Normal: Abdomen, Normal: Skin and Normal: Neurological Plan Diagnosis/Plan: Unchanged I have reviewed the history and physical and performed a pertinent physical examination on my patient. No changes have occurred unless specified. Time Spent With Patient Time: Total time managing care of this patient today ____ minutes.
[2023-08-20 10:50] VITALS: BP 183/84; PULSE 65; RESP 16; TEMP 37; O2SAT 97; BMI 42.7
--- NOTE | 2023-08-20 10:55 | W.PM.OPN ---
Operative Note Operative Note Date of Service: 08/20/23 Narrative: Operative Information Procedure Description: EGD, Colonoscopy Indication: hx of barretts, gastric polyp and colon polyp Anesthesia: MAC FLEXIBLE TRANSORAL UPPER GASTROINTESTINAL ENDOSCOPY AND COLONOSCOPY PROCEDURE NOTE UPPER ENDOSCOPY Consent: Indications for the procedure and potential complications of bleeding, perforation, reaction to medications and missed diagnosis were discussed with the patient and informed consent was obtained. Instrument: Olympus GIF H 190 J mid size upper endoscope Monitoring: Vital signs and clinical assessment, continuous EKG monitoring, Pulse oximetry, Carbon Dioxide monitoring and blood pressure monitoring were done throughout the procedure. Procedure: The patient was placed in the left lateral decubitis position and pre-procedure medications were administered and a bite block was placed. The endoscope was inserted into the mouth and advanced under direct vision to the third part of duodenum. A careful inspection was made as the upper endoscope was withdrawn including a retroflexed examination of the proximal stomach; Findings and interventions are described below. Findings: Larynx:normal Esophagus: GE junction at 37 cm, diaphragm hiatus at 40 cm, consistent with 3 cm fixed hiatal hernia, irregular Z line with islands of salmon pink tissue noted, bx taken for barretts, Stomach: Raised polypoid leison in the pyloric area at the 11 o' clock position measured about 10 mm and this was removed with cold snare. bx taken from pylorus. Grade 2 flap valve on retroflexed examination of the cardia. Many fundic gland polyps were noted. Duodenum: normal Intervention: Biopsies as noted above, polypectomy COLONOSCOPY Instrument: Olympus variable stiffness pediatric scope 190L Colonoscopy Monitoring: Vital signs and clinical assessment, continuous EKG monitoring, Pulse oximetry, Carbon Dioxide monitoring and blood pressure monitoring were done throughout the procedure. Colon withdrawal time was 21 minutes. Procedure: The patient was placed in the left lateral decubitis position and pre-procedure medications were administered. After a digital rectal examination of the ano-rectum, the video colonoscope was inserted into the rectum and advanced through the colon to the cecum/TI. The colonoscope was slowly withdrawn in a retrograde panoramic fashion and the colon mucosa was carefully examined including a retroflexed view of the rectum. Findings and interventions are described below. Procedure Difficulty: moderate Findings: Terminal Ileum-normal Cecum:normal Ascending Colon: 6-7 mm sessile polyp removed with cold snare Transverse Colon - few tics noted Descending Colon: few tics noted Sigmoid Colon: diverticulosis, moderate severity Rectum: Retroflexion with moderate sized internal hemorrhoids, grade I Anorectum - normal Colon preparation: [place] Bowel Preparation Scale Right colon; 1-2 Transverse colon: 2 Left colon; 2 (0 = Unprepared colon segment with mucosa not seen due to solid stool that cannot be cleared. 1 = Portion of mucosa of the colon segment seen, but other areas of the colon segment not well seen due to staining, residual stool and/or opaque liquid. 2 = Minor amount of residual staining, small fragments of stool and/or opaque liquid, but mucosa of colon segment seen well. 3 = Entire mucosa of colon segment seen well with no residual staining, small fragments of stool or opaque liquid) Impression and Post Procedure Diagnosis: Endoscopy Findings: barretts fundic gland polyps pyloric outlet polyp hiatal hernia Colonoscopy Findings: polyp internal hemorrhoids diverticular disease Plan: Await Pathology results Repeat Colonoscopy in 1-2 years due to fair right sided prep or earlier if clinically indicated High fiber diet leaflet avoid straining at stool, epsom salts and sitz bath, anusol supps or cream rept EGD in 3 yrs for barretts surveillance, GERD precautions, if sx worsen refer for hernia repair eval Above findings were reviewed with the patient and relevant handouts were provided if indicated.
[2023-08-20] MEDS: Lactated Ringers 1,000 ML 100 ML IVCONT (10:56)
[2023-08-20 12:14] VITALS: BP 110/62; PULSE 64; RESP 16; TEMP 36.1; O2SAT 97
[2023-08-20 12:29] VITALS: BP 129/63; PULSE 66; RESP 20; O2SAT 98
[2023-08-20 12:44] VITALS: BP 158/76; PULSE 75; RESP 20; TEMP 36.3; O2SAT 99
== END 2023-08-20 14:30 | disposition home or self-care (01) ==
PROVIDERS: PCP Internal Medicine; Visit Provider Internal Medicine Gastroenterology
PROC: (CPT 43251; principal; 2023-08-20 11:50)
DX: K31.7 Polyp of stomach and duodenum (principal); K22.9 Disease of esophagus, unspecified; K44.9 Diaphragmatic hernia without obstruction or gangrene; Z87.19 Personal history of other diseases of the digestive system; Z12.11 Encounter for screening for malignant neoplasm of colon; D12.2 Benign neoplasm of ascending colon; K57.30 Diverticulosis of large intestine without perforation or abscess without bleeding; K64.0 First degree hemorrhoids; Z86.010 Personal history of colon polyps; I10 Essential (primary) hypertension; E78.5 Hyperlipidemia, unspecified; D50.9 Iron deficiency anemia, unspecified; I48.91 Unspecified atrial fibrillation; K76.0 Fatty (change of) liver, not elsewhere classified; Z79.01 Long term (current) use of anticoagulants; Z79.02 Long term (current) use of antithrombotics/antiplatelets
CPT/HCPCS: 43251; 43239; 45385; 88305; 88313; 88342; J1596; J2250; J2704

== ENCOUNTER → 2023-08-20 09:18 | Outpatient (BNV) | payer MEDICARE, MEDICAID, SELFPAY | PROVIDERS: PCP Internal Medicine; Visit Provider Internal Medicine Gastroenterology | DX: K22.70 Barrett's esophagus without dysplasia (principal); K31.7 Polyp of stomach and duodenum; D12.2 Benign neoplasm of ascending colon; K57.30 Diverticulosis of large intestine without perforation or abscess without bleeding; K64.0 First degree hemorrhoids | CPT/HCPCS: 43251; 45385 ==